=== PATIENT | female | born 1980 | race Caucasian/White ===

== ENCOUNTER 2024-04-27 21:27 | Emergency (ER) | payer BC, SELFPAY ==
[2024-04-27] VITALS (7 sets, daily range): BP systolic 153–190; BP diastolic 105–109; PULSE 50–101; RESP 15–27; TEMP 36.3; O2SAT 100
--- NOTE | ~2024-04-27 | CT_ITS ---
CT of the Abdomen and Pelvis: Indication: Abdominal pain Technique: 2.5 mm axial scans were obtained through the abdomen and pelvis following intravenous adm inistration of 100 cc of Omnipaque 350. Dose reduction technique was used on this scan by utilizing a utomated exposure control and iterative reconstruction technique. The dose-length product (DLP) was 3 50.63 mGy-cm. Findings: Scans through the lung bases are unremarkable. Probable diffuse hepatic steatosis. The spleen, pancreas, gallbladder, adrenals and kidneys are withi n normal limits. No evidence of aortic aneurysm. No lymphadenopathy. No bowel obstruction or bowel wall thickening. There is no evidence to suggest acute appendicitis. Sm all fat-containing umbilical hernia present. Images through the pelvis were performed. Urinary bladder unremarkable. No pelvic mass seen. No ascit es. Status post hysterectomy. Bilateral L5 pars interarticularis defects are present. Impression: No acute abnormality. Probable diffuse hepatic steatosis. Small fat-containing umbilical hernia. Bilateral L5 pars interarticularis defects are present. Reviewed, dictated and finalized at location . Impression: No acute abnormality. Probable diffuse hepatic steatosis. Small fat-containing umbilical hernia. Bilateral L5 pars interarticularis defects are present.
--- NOTE | ~2024-04-27 | CT_ITS ---
CT ANGIOGRAM NECK AND HEAD History: Aneurysm, possible subarachnoid hemorrhage. Technique: Axial noncontrast imaging of the brain was performed. Serial spiral axial images through t he head and neck were then obtained during arterial phase IV injection of 100 cc of Omnipaque 350. 3- D postprocessing and MIP images were then reconstructed on the remote workstation. Dose reduction nora hnique was used on this scan by utilizing automated exposure control and iterative reconstruction nora hnique. The dose-length product (DLP) was 1759.36 mGy-cm. COMPARISON: 04/28/2024 at 1:38 AM CTA neck findings: Bilateral vertebral arteries are patent. Bilateral common carotid, internal carot id, and external carotid arteries are widely patent. No large vessel occlusion. No stenosis. No aneur ysm. The proximal right internal carotid artery demonstrates 0% stenosis relative to the normal dista l artery lumen diameter. The proximal left internal carotid artery demonstrates 0% stenosis relative to the normal distal artery lumen diameter. CTA head findings: Distal vertebral arteries, basilar artery, and posterior cerebral arteries are pat ent. Distal internal carotid arteries, middle cerebral arteries, and anterior cerebral arteries are p atent. No large vessel occlusion or stenosis. No aneurysm identified. Axial noncontrast imaging of the brain again demonstrate extensive sulcal hyperdensity, similar to po ssibly minimally improved from prior exam. Again, unclear whether this represents subarachnoid hemorr nancy, a contrast-enhancing, or combination of both. No mass effect or midline shift. Ventricles and s ubarachnoid spaces are unremarkable. No infarct or mass lesion seen. Paranasal sinuses and mastoid ai r cells are clear. Impression: No aneurysm identified. No vascular abnormality seen. Extensive sulcal hyperdensity on noncontrast imaging again could reflect subarachnoid hemorrhage vers us sequela of prior IV contrast administration. Reviewed, dictated and finalized at location [facility]. Impression: No aneurysm identified. No vascular abnormality seen. Extensive sulcal hyperdensity on noncontrast imaging again could reflect subara chnoid hemorrhage versus sequela of prior IV contrast administration.
--- NOTE | ~2024-04-27 | CT_ITS ---
Non-contrast Head CT History: Headache Technique: Axial non-contrast imaging of the brain was performed. Dose reduction technique was used on this scan by utilizing automated exposure control and iterative reconstruction technique. The dose -length product (DLP) was 605.33 mGy-cm. Findings: There is extensive hypodensity throughout sulci in the bilateral cerebral hemispheres. Ther e is however IV contrast onboard from recent prior abdominal pelvic CT. No mass lesion or acute infar ct evident. Allen-white differentiation appears intact. The ventricles and subarachnoid spaces are nor mal in size. The calvarium appears normal. The visualized paranasal sinuses and mastoid air cells a re clear. Impression: Possible extensive subarachnoid hemorrhage, though evaluation is somewhat confounded by the presence of IV contrast on board from recent abdominal pelvic CT scan. Consider follow-up exam. LP could be pe rformed to confirm presence of blood in CSF, if clinically indicated. Reviewed, dictated and finalized at [facility]. Impression: Possible extensive subarachnoid hemorrhage, though evaluation is somewhat confo unded by the presence of IV contrast on board from recent abdominal pelvic CT s can. Consider follow-up exam. LP could be performed to confirm presence of bloo d in CSF, if clinically indicated.
[2024-04-27 22:16] LABS: Basophils Absolute Auto 0.1 K/mm3 (0.0-0.1); Basophils Percent Auto 0.5 % (0.2-1.2); Eosinophils Absolute Auto 0.1 K/mm3 (0-0.3); Eosinophils Percent Auto 0.6 % (0-4.4); Hematocrit 42.2 % (37.0-47.0); Hemoglobin 14.2 g/dL (12.0-15.0); Immature Granulocyte Percent A 0.5 % (0-0.5); Lymphocytes Absolute Auto 4.09 K/mm3 (0.9-3.2); Lymphocytes Percent Auto 20.9 % (18.3-44.2); Mean Corpuscular HGB Conc 33.6 g/dl (32-36); Mean Corpuscular Hemoglobin 30.1 pg (26-34); Mean Corpuscular Volume 89.6 fl (80-100); Mean Platelet Volume 9.7 fl (7.4-10.4); Neutrophils Absolute Auto 14.2 K/mm3 (1.3-6.7); Neutrophils Percent Auto 72.5 % (45.5-73.1); Platelet Count Result 341 k/mm3 (150-375); Red Blood Count 4.71 M/mm3 (4.2-5.4); Red Cell Distribution Width 13.4 % (11.5-14.5); White Blood Count 19.6 K/mm3 (4.5-10.0)
[2024-04-27 22:25] LABS: Appearance Urine Clear (Clear); Bilirubin Urine Negative (Negative); Blood Urine Negative (Negative); Color Urine Yellow (Yellow); Glucose Urine UA Trace mg/dL (Negative); Ketones Urine Trace mg/dL (Negative); Leukocyte Esterase Ur Negative LEU/UL (Negative); Nitrate Urine Negative (Negative); Protein Urine Negative (Negative); Specific Grav Ur 1.009 (1.001-1.035); Urobilinogen Urine 0.2 mg/dL (<2.0); pH Urine 8.5 (5.0-9.0)
[2024-04-27 22:26] LABS: Add Urine Microscopic? YES
[2024-04-27] MEDS: METOCLOPRAMIDE HCL INJ 10 MG/2 ML VIAL IV PUSH (22:41)
[2024-04-27] MEDS: SODIUM CHLORIDE 0.9% IV 1,000 ML 999 ML IV CONT (22:41)
[2024-04-27] MEDS: diphenhydrAMINE HCl INJ 50 MG/ML VIAL 25 MG IV PUSH (22:41)
[2024-04-27 22:45] LABS: Creatine Kinase 106 U/L (30-135); Magnesium 1.8 mg/dL (1.6-2.3)
[2024-04-27 22:48] LABS: Alanine Aminotransferase 56 U/L (6-35); Alkaline Phosphatase 117 U/L (38-126); Anion Gap 15 mmol/L (4-12); Aspartate Amino Transferase 40 U/L (14-36); Bilirubin,Total 0.8 mg/dL (0.2-1.3); Blood Urea Nitrogen 11 mg/dL (7-17); Calcium 9.6 mg/dL (8.4-10.2); Carbon Dioxide 24 mmol/L (22-30); Chloride 98 mmol/L (98-107); Estimated CRCL calculation 62 ml/min; Estimated Glomerular Filt Rate > 60; Glucose 162 mg/dL (65-110); Lipase 91 U/L (23-300); Potassium 2.8 mmol/L (3.4-5.0); Sodium 137 mmol/L (137-145)
--- NOTE | 2024-04-27 23:27 | ED.ABDPAIN ---
HPI - Abdominal Pain General Chief Complaint: Abdominal Pain Stated Complaint: n/v, fever, abdominal pain Time Seen by Provider: 04/27/24 21:46 Source: patient Mode of arrival: ambulatory Limitations: no limitations History of Present Illness HPI narrative: Patient is a 44-year-old female who presents the ED with report of nausea and vomiting. Patient reports she began feeling nauseous this evening after a intense endurance work-out class. She did drink plenty of water throughout the class. She when out to dinner with her significant other where she developed nausea and vomiting. States symptoms have persisted. She has been unable to keep down any food or drink. She complains of pain throughout her upper abdomen. Also reports diffuse frontal SQUIRES. Denies history of similar symptoms. Denies hx of migraines. Denies fevers, neck pain, diarrhea, constipation, urinary complaints. Related Data Allergies Allergy/AdvReac Type Severity Reaction Status Date / Time No Known Allergies Allergy Verified 04/27/24 21:34 Review of Systems Review of Systems: CONSTITUTIONAL: Denies fever, chills, or sweats. GASTROINTESTINAL: See HPI. GENITOURINARY: Denies dysuria or hematuria. NEUROLOGIC: See HPI All systems reviewed & are unremarkable except as noted in HPI and below Exam Narrative: GENERAL: Uncomfortable/mildly ill appearing, well-nourished, actively vomiting on exam. HEAD: Normocephalic, atraumatic. RESPIRATORY: Airway patent, respirations nonlabored. Clear to auscultation bilaterally, no rales, rhonchi, wheezing. CARDIOVASCULAR: Regular rate and rhythm without murmurs, rubs, or gallops. ABDOMINAL: Soft, mild diffuse tenderness throughout abdomen, worst throughout epigastric region, nondistended. Normoactive BS. MUSCULOSKELETAL: Moves all extremities. No gross deformities. SKIN: Warm, dry, normal color. NEURO: A&O X3. Speech clear. Cranial nerves II-XII grossly intact. No ataxic movements. Moving all extremities. PSYCHIATRIC: Appropriate mood and affect. Normal interaction. Course Vital Signs Vital signs: Vital Signs Temperature 97.4 F L 04/27/24 21:30 Pulse Rate 55 L 04/27/24 21:30 Respiratory Rate 15 04/27/24 21:30 Blood Pressure 190/109 H 04/27/24 21:30 Pulse Oximetry 100 07/09/24 21:30 Oxygen Delivery Room Air 04/27/24 21:30 Temperature 97.4 F L 04/27/24 21:30 Pulse Rate 79 04/28/24 04:50 Respiratory Rate 13 04/28/24 04:50 Blood Pressure 133/84 04/28/24 04:50 Pulse Oximetry 100 04/28/24 04:38 Oxygen Delivery Room Air 04/27/24 21:30 MDM - Abdominal Pain MDM Narrative Medical decision making narrative: Patient presented to ED with nausea, vomiting, abdominal pain, onset this evening. Patient hypertensive upon arrival, uncomfortable appearing, actively vomiting upon my evaluation. Fluids and nausea medicine initiated. CBC with white blood cell count of 19.6. Likely in part reactive from profuse vomiting. CMP with potassium of 2.8. Normal bicarb. Anion gap of 15. Fluids ongoing. IV KCl given. Normal magnesium. Stable kidney function. Minimal transaminitis. Normal lipase. CK within normal limits. Urine without evidence of infection. CT scan of abdomen/ pelvis obtained and pending. Patient has had persistent vomiting despite 8mg Zofran, benadryl, reglan. EKG obtained, no qtc prolongation, 435. Will attempt haldol. Patient resting much more comfortably after haldol. Will also obtain CT brain d/t report of now severe SQUIRES in the setting of profuse vomiting. CT abd/pelvis negative CT brain with possible subarachnoid hemorrhage. Somewhat unclear as patient received IV contrast with abdominal scan earlier, could be residual from contrast. Will discuss with neurosurg. I performed a more thorough neurologic exam on patient after these findings, I do not appreciate any focal deficits. No pronator drift. Equal director paid media strength in upper and lower extremities bilaterally. Eq
[2024-04-27] MEDS: ONDANSETRON HCL ODT 4 MG TABLET PO (23:31)
[2024-04-27] MEDS: ONDANSETRON INJ 4 MG/2 ML VIAL IV PUSH (23:52)
[2024-04-28] VITALS (53 sets, daily range): BP systolic 118–161; BP diastolic 76–104; PULSE 72–94; RESP 11–24; O2SAT 92–100
--- NOTE | 2024-04-28 00:30 | ECG_ITS ---
Test Date: 2024-04-28 00:35:55 Measurements Intervals [place] Rate: 74 P: 68 VA: 181 QRS: 82 QRSD: 93 T: 60 QT: 408 QTc: 454 Interpretive Statements SINUS RHYTHM WITH SINUS ARRHYTHMIA BASELINE WANDER- I, II, III, AVR, AVL NORMAL ECG No previous ECG available for comparison Electronically Signed On 04-28-2024 06:07:56 CDT by Maurisio Morris D.O.
[2024-04-28] MEDS: HALOPERIDOL LACTATE 5 MG/ML VIAL 2.5 MG IV PUSH (00:34)
[2024-04-28] MEDS: KCL 20 MEQ/SW 100 ML 100 ML 50 MEQ IVPB (00:35)
[2024-04-28] MEDS: SODIUM CHLORIDE 0.9% IV 1,000 ML 999 ML IV CONT (00:35)
--- NOTE | 2024-04-28 00:48 | PC.NURSE ---
Pt continues to have increasing bp and c/o terrible headaches. JANIE Bond notified and will place CT Brain at this time.
[2024-04-28] MEDS: MORPHINE SULFATE (*CRX) 4 MG/ML INJ IV PUSH (01:00)
--- NOTE | 2024-04-28 02:02 | PC.NURSE ---
pt continues to have episodes of doubling over in abdominal pain with grabbing her head.
--- NOTE | 2024-04-28 02:09 | PC.NURSE ---
nihss 0 at this time. No current deficits noted.
[2024-04-28] MEDS: levETIRAcetam 1000MG/NACL100ML 1,000 MG/100 ML BAG 400 MG IVPB (02:17)
--- NOTE | 2024-04-28 02:17 | PC.NURSE ---
lyssa rodríguez at bedside, family notified of potential bleed. Pt and spouse have no preference between [facility], whatever can get her in the fastest. Radiology notified to push imaging to both facilities and to please make a cd for pt.
[2024-04-28] MEDS: LABETALOL HCL INJ 100 MG/20 ML VIAL 10 MG IV PUSH (02:21)
[2024-04-28 02:24] LABS: Amphetamine Screen Urine Negative (Negative); Barbiturate Screen Urine Negative (Negative); Benzodiazepines Screen Urine Negative (Negative); Cannabinoid Screen Urine Positive (Negative); Cocaine Screen Urine Negative (Negative); Methadone Screen Urine Negative (Negative); Opiate Screen Urine Negative (Negative); Phencyclidine Screen Urine Negative (Negative)
[2024-04-28 03:28] LABS: Lactic Acid Reflex 1.6 mmol/L (0.7-2.0)
--- NOTE | 2024-04-28 05:50 | PC.NURSE ---
EMS report to [facility]
== END 2024-04-28 05:50 | disposition short-term general hospital (02) ==
PROVIDERS: Physician Assistant; Emergency Provider Emergency Medicine
DX: I60.9 Nontraumatic subarachnoid hemorrhage, unspecified (principal); R11.2 Nausea with vomiting, unspecified; E87.6 Hypokalemia; K42.9 Umbilical hernia without obstruction or gangrene
CPT/HCPCS: 36415; 70450; 70496; 70498; 74177; 80053; 80307; 81001; 81003; 82550; 83605; 83690; 83735; 85025; 93005; 96361; 96365; 96366; 96375; 99285; A9270; J1200; J1630; J1953; J2270; J2405; J2765; J3480; J7030; Q9967